=== PATIENT | female | born 1980 | race Two or more races ===

== ENCOUNTER 2018-04-04 05:14 | Day surgery (SDC) | payer OTHER ==
[2018-04-03 11:33] VITALS: BMI 28.3
[2018-04-04] MEDS ORDERED: PHENAZOPYRIDINE HCL 100 MG TABLET (FP) PO ONE (06:15)
[2018-04-04] MEDS ORDERED: PHENAZOPYRIDINE HCL 100 MG TABLET (FP) ONE (06:30)
[2018-04-04 07:11] LABS: ANION GAP 4 MMOL/L (8-16); BLOOD UREA NITROGEN 10 mg/dL (7-18); CALCIUM 8.8 mg/dL (8.5-10.1); CHLORIDE 110 mmol/L (98-107); CO2 26 mmol/L (21-32); CREATININE 0.7 mg/dL (0.55-1.3); GLUCOSE,RANDOM 78 mg/dL (74-106); POTASSIUM 4.2 mmol/L (3.5-5.1); SODIUM 139 mmol/L (136-145)
[2018-04-04] MEDS ORDERED: ceFAZolin SODIUM 1 GM VIAL ONE (07:21)
[2018-04-04] MEDS ORDERED: fentaNYL CITRATE 250 MCG/5 ML VIAL ONE ×2 (08:40→11:01)
[2018-04-04] MEDS ORDERED: LIDOCAINE HCL/PF 2% SDV 5ML VIAL ONE (08:40)
[2018-04-04] MEDS ORDERED: ROCURONIUM BROMIDE 50 MG/5 ML VIAL ONE ×2 (08:41→11:06)
[2018-04-04] MEDS ORDERED: MIDAZOLAM HCL 2 MG/2 ML SINGLE DOSE VIAL ONE (08:41)
[2018-04-04] MEDS ORDERED: PROPOFOL 20 ML ONE ×2 (08:41)
--- NOTE | 2018-04-04 09:17 | HP ---
History & Physical Update - History History: No Change - Physical Physical: No Change - Assessment Assessment: No Change - Plan Plan: No Change (Full H&P in paper chart)
[2018-04-04] MEDS ORDERED: BUPIVACAINE HCL/PF 0.5% (5MG/ML) 10 ML VIAL ONE (10:03)
[2018-04-04] MEDS ORDERED: ceFAZolin SODIUM 1 GM VIAL IVPB ONE (10:30)
[2018-04-04] MEDS ORDERED: DEXAMETHASONE SOD PHOSPHATE 4 MG/1 ML VIAL ONE (10:38)
[2018-04-04] MEDS ORDERED: ePHEDrine SULFATE 50 MG/1 ML AMPULE ONE (10:51)
[2018-04-04] MEDS ORDERED: DESFLURANE GAS 240 ML BOTTLE IH ONE (10:57)
[2018-04-04] MEDS ORDERED: GLYCOPYRROLATE 0.2 MG/1 ML VIAL ONE ×3 (12:46)
[2018-04-04] MEDS ORDERED: NEOSTIGMINE METHYLSULFATE 0.5 MG/ML - 10 ML MDV ONE (12:46)
--- NOTE | 2018-04-04 13:07 | OP ---
Operative Note - Note: Operative Date: 04/04/18 Pre-Operative Diagnosis: Leiomyomatous uterus. bilateral salpingectomy Operation: Robotic Total Laparoscopic Hysterectomy. Bilateral salpingectomy Findings: uterus 10 cm normal tubes and ovaries Post-Operative Diagnosis: Same as Pre-op Surgeon: Claudine Lobo Adult Services Librarian: Delano Bazan Anesthesia: General Estimated Blood Loss (mls): 300 Operative Report Dictated: Yes
[2018-04-04] MEDS ORDERED: CEFAZOLIN 2 GM in DEXTROSE 5%-WATER - 100 ML IVPB ONE (13:37)
--- NOTE | 2018-04-04 13:39 | SURG ---
Surgery Quality Assurance Specialist Note Quality Assurance Specialist: Delano Bazan PA-C Date of Service: 04/04/18 Diagnosis: Fibroid uterus Procedure: Robotic Total Hysterectomy. Bilateral salpingectomy I was present for the entirety of the operative procedure. For further detail, please refer to operative report.
[2018-04-04] MEDS ORDERED: ONDANSETRON 4 MG/2 ML VIAL IVPUSH PRN (13:41)
[2018-04-04] MEDS ORDERED: HYDROmorphone *PCA* 10MG/50ML DISP.SYRIN PCA SCH ×2 (13:45→14:14)
[2018-04-04] MEDS ORDERED: LACTATED RINGERS SOLUTION 1,000 ML/1,000 ML INFUS.BAG IV SCH (13:45)
[2018-04-04] MEDS ORDERED: ONDANSETRON 4 MG/2 ML VIAL ONE (14:21)
--- NOTE | 2018-04-04 14:56 | OP ---
DATE OF OPERATION: 04/04/2018 PREOPERATIVE DIAGNOSIS: Leiomyomas of uterus, pelvic pain. OPERATION: Robotic laparoscopic total hysterectomy and bilateral salpingectomy. POSTOPERATIVE DIAGNOSIS: Leiomyomas of uterus, pelvic pain. SURGEON: Claudine Lobo MD CHISEL GRINDER: Delano Bazan PA-C ANESTHESIA: General. ESTIMATED BLOOD LOSS: 300 mL. PROCEDURE: Patient was taken to the operating room, placed in dorsal lithotomy position, prepped and draped in the usual sterile fashion. A timeout was performed in accordance with hospital regulation. Speculum was placed in the vagina. Anterior cervix was grasped with a single-toothed tenaculum. Cervix was then dilated to accommodate the uterine manipulator. Dai catheter was inserted into the bladder. Uterine manipulator was placed around the patient's cervix. Attention was then drawn to the umbilicus where an 8-mm umbilical incision was made. Veress needle was inserted into the cavity. Approximately 3-4 L of CO2 was insufflated into the cavity. Veress needle was then removed, and an 8-mm trocar was then inserted. Laparoscope and camera were attached. Visualization revealed a leiomyomas of uterus and adenomyosis, normal tubes and ovaries. Patient had had a bilateral tubal ligation in the past. Two trocars were placed on the left side, 1 parallel to the umbilical and 1 in the upper abdomen on the left. An 8-mm incision and a 5-mm incision were then done. The laparoscopy was then visualized as the trocars entered the abdomen. AirSeal cannula was then attached. Two trocars were also placed on the right side 8-mm in diameter and 10 cm from each other. Da Jarrod Robot was then side docked to the patient's arm. Trocars were then inserted onto the robot. A tenaculum was placed on arm 4, Endoshears were placed in arm 3, and vessel sealer was placed on arm 1. All instruments were followed to the site of operation. Patient had been placed in steep Trendelenburg prior to Da Jarrod Robot attachment. Attention was then drawn to the console where control of the console was then performed. Tenaculum was then used to elevate the uterus, and uterine ovarian ligaments were identified and clipped and cut. Tubes and ovaries were noted to be normal on the left side. Ovarian ligament was identified and clamped and cut. Vesicouterine reflection was then entered, and bladder was bluntly dissected out of the line operator field. Cardinal ligament was then identified and clamped and cut down to the level of the cervix. The same procedure was repeated on the other side down to the level of the cervix. The Endoshears were then used to cut the vagina circumferentially, and cervix and uterus were then removed vaginally after Endoshears had removed all of the cervix away from the vagina. Tubes were bilaterally grasped, and LigaSure was then used to cut and clamp the tubes. Tubes were then removed. A V-Loc suture was then passed into the abdomen, and V-Loc suture was then used to close the vagina in continuous fashion. Hemostasis was achieved. Irrigation was done. Ureters were identified throughout the whole case and found to be peristalsis. No orange urine was seen in the abdomen. Bladder was noted to be intact. The needle was then removed. CO2 was removed from the abdomen. Incisions were then closed using 3-0 Vicryl suture in subcuticular fashion. Wound was washed and dressed. Patient tolerated the procedure well. ESTIMATED BLOOD LOSS: 300 mL. Tommy [id number]
[2018-04-04] MEDS ORDERED: CEFAZOLIN 2 GM in DEXTROSE 5%-WATER 100 ML IVPB SCH (18:00)
[2018-04-04] MEDS ORDERED: CEFAZOLIN 2 GM/D5W 2 GM/50 ML ML IVPB SCH (18:26)
[2018-04-04 19:10] LABS: BASO % 0.1 % (0-2.0); HEMATOCRIT 32.2 % (32.4-45.2); HEMOGLOBIN 10.1 GM/dL (10.7-15.3); LYMPH % 4.8 % (8-40); MCHC 31.4 g/dl (32.0-36.0); MEAN PLT VOLUME 9.2 fl (7.5-11.1); NEUT % 92.1 % (42.8-82.8); PLATELET COUNT 211 K/MM3 (134-434); RBC 5.12 M/mm3 (3.60-5.2); RDW 16.5 % (11.6-15.6); WHITE BLOOD COUNT 14.3 K/mm3 (4.0-10.0)
[2018-04-04 19:17] LABS: MCH 19.8 pg (25.7-33.7)
[2018-04-04 19:44] LABS: ALBUMIN 3.3 g/dl (3.4-5.0); ALK PHOS 49 U/L (45-117); ANION GAP 7 MMOL/L (8-16); BILIRUBIN,TOTAL 0.5 mg/dL (0.2-1); BLOOD UREA NITROGEN 8 mg/dL (7-18); CALCIUM 8.1 mg/dL (8.5-10.1); CHLORIDE 106 mmol/L (98-107); CO2 24 mmol/L (21-32); CREATININE 0.5 mg/dL (0.55-1.3); GLUCOSE,RANDOM 116 mg/dL (74-106); POTASSIUM 4.1 mmol/L (3.5-5.1); SGOT/AST 16 U/L (15-37); SGPT/ALT 17 U/L (13-61); SODIUM 138 mmol/L (136-145); TOT PROT 6.5 g/dl (6.4-8.2)
[2018-04-04 20:28] LABS: ANISOCYTOSIS 1+; MACROCYTOSIS 1+; PLATELET ESTIMATE ADEQUATE
[2018-04-05 07:52] LABS: HEMATOCRIT 30.6 % (32.4-45.2); HEMOGLOBIN 9.6 GM/dL (10.7-15.3); MCHC 31.4 g/dl (32.0-36.0); MEAN CELL VOLUME 63.2 fl (80-96); MEAN PLT VOLUME 9.1 fl (7.5-11.1); PLATELET COUNT 182 K/MM3 (134-434); RBC 4.84 M/mm3 (3.60-5.2); RDW 16.7 % (11.6-15.6); WHITE BLOOD COUNT 12.5 K/mm3 (4.0-10.0)
[2018-04-05] MEDS ORDERED: oxyCODONE HCL 5 MG TABLET PO PRN ×2 (07:57)
[2018-04-05 08:05] LABS: MCH 19.8 pg (25.7-33.7)
--- NOTE | 2018-04-05 08:08 | PN ---
Progress Note (short form) - Note Progress Note: 37yo F s/p Robotic hysterectomy POD 1. Pt seen and examined at bedside. Pt states that she is feeling well. Denies n/v, fever, chills. States that her pain is well controlled and has ambulated a little bit. Pt denies any excessive vaginal bleeding. Last Vital Signs Temp Pulse Resp BP Pulse Ox 99.2 F 95 H 20 99/54 L 100 04/05/18 06:00 04/05/18 06:00 04/05/18 06:00 04/05/18 06:00 04/04/18 21:00 PE: Gen: A&O x3 Resp: breathing comfortably Abd: soft, nondistended, mild tenderness, incisions are clean with no erythema or discharge. Ext: no edema Problem List - Problems (1) H/O abdominal hysterectomy Assessment/Plan: Plan -DC coello -advance diet -DC FLIGHT ENGINEER HELICOPTER and convert to PO pain meds -OOB/ambulate -will follow up AM labs -will consider discharge home later today if pt doing well. Code(s): Z90.710 - ACQUIRED ABSENCE OF BOTH CERVIX AND UTERUS
[2018-04-05 09:02] LABS: ANION GAP 8 MMOL/L (8-16); BLOOD UREA NITROGEN 7 mg/dL (7-18); CALCIUM 8.5 mg/dL (8.5-10.1); CHLORIDE 105 mmol/L (98-107); CO2 27 mmol/L (21-32); CREATININE 0.6 mg/dL (0.55-1.3); GLUCOSE,RANDOM 76 mg/dL (74-106); SODIUM 139 mmol/L (136-145)
[2018-04-05] MEDS ORDERED: ENOXAPARIN NA (PORCINE) 30 MG/0.3 ML DISP.SYRIN SQ SCH (10:00)
[2018-04-05] MEDS ORDERED: PCA PUMP KEY 1 EACH EACH ONE ×2 (14:49→15:33)
--- NOTE | 2018-04-05 17:16 | PN ---
Progress Note, Physician History of Present Illness: PT s/p Robotic hysterectomy. Doing well. Tolerating diet, ambulating, voiding , passing flatus, tolerating regular diet. Desires to go home. - Current Medication List Current Medications: Active Medications Diphenhydramine HCl (Benadryl Injection -) 12.5 mg IVPUSH ONCE PRN PRN Reason: FOR ITCHING Enoxaparin Sodium (Lovenox -) 30 mg SQ DAILY DON Last Admin: 04/05/18 10:15 Dose: 30 mg Hydromorphone HCl (Dilaudid Cath Lab Radiology Technician -) 10 mg TRAIN MASTER TRAIN MASTER DON; Protocol Stop: 04/11/18 13:42 Lactated Ringer's (Lactated Ringers Solution) 1,000 ml in 1,000 mls @ 75 mls/ hr IV ASDIR DON Last Admin: 04/04/18 23:46 Dose: 75 mls/hr Ondansetron HCl (Zofran Injection) 4 mg IVPUSH Q4H PRN PRN Reason: NAUSEA AND/OR VOMITING Last Admin: 04/04/18 19:57 Dose: 4 mg Oxycodone HCl (Roxicodone -) 5 mg PO Q4H PRN PRN Reason: PAIN LEVEL 1-5 Last Admin: 04/05/18 09:39 Dose: 5 mg Oxycodone HCl (Roxicodone -) 10 mg PO Q4H PRN PRN Reason: PAIN LEVEL 6-10 - Objective Vital Signs: Vital Signs Temperature 98.7 F 04/05/18 09:00 Pulse Rate 96 H 04/05/18 09:00 Respiratory Rate 20 04/05/18 09:00 Blood Pressure 113/76 04/05/18 09:00 O2 Sat by Pulse Oximetry (%) 100 04/04/18 21:00 Constitutional: Yes: Well Nourished, No Distress, Calm Eyes: Yes: Conjunctiva Clear HENT: Yes: Atraumatic Neck: Yes: WNL Cardiovascular: Yes: Regular Rate and Rhythm Respiratory: Yes: Regular Gastrointestinal: Yes: Normal Bowel Sounds, Soft Wound/Incision: Yes: Clean/Dry, Well Approximated Neurological: Yes: Alert, Oriented Psychiatric: Yes: Alert, Oriented Labs: CBC, BMP 04/05/18 07:00 04/05/18 07:00 Problem List - Problems (1) History of robot-assisted laparoscopic hysterectomy Code(s): Z90.710 - ACQUIRED ABSENCE OF BOTH CERVIX AND UTERUS Assessment/Plan 37 y/o POD#1 s/p robotic hysterectomy doing well pain controlled tolerating diet PO pain meds discharge home
[2018-04-05 17:20] VITALS: BP 118/65; PULSE 91; TEMP 99.1
--- NOTE | 2018-04-08 16:35 | PATH ---
Surgical Pathology Report Patient Name: FLORENCIO VALDEZ [facility]. Rec. #: [id number] /Age/Gender: 1980 (Age: 37) / F Account: [id number] Location: AMBULATORY SURG Taken: 04/04/2018 Received: 04/05/2018 Reported: 04/08/2018 Physicians: Claudine Lobo M.D. Specimen(s) Received A: RIGHT FALLOPIAN TUBE B: LEFT FALLOPIAN TUBE C: UTERUS AND CERVIX Clinical History Leiomyoma of uterus Final Diagnosis A. FALLOPIAN TUBE, RIGHT, SALPINGECTOMY: UNREMARKABLE FALLOPIAN TUBE (INCLUDING FULL LUMINAL PORTION AND FIMBRIATED END). B. FALLOPIAN TUBE, LEFT, SALPINGECTOMY: UNREMARKABLE FALLOPIAN TUBE (INCLUDING FULL LUMINAL PORTION AND FIMBRIATED END). C. UTERUS AND CERVIX, ROBOTIC LAPAROSCOPIC HYSTERECTOMY: PROLIFERATIVE ENDOMETRIUM. CERVIX WITH FOCAL ACUTE AND CHRONIC CERVICITIS. MYOMETRIUM WITH ADENOMYOSIS AND INTRAMURAL LEIOMYOMA(TA). Electronically Signed Zahira Mueller M.D. Gross Description A. Received in formalin labeled "right fallopian tube," is a 0.4 cm in length portion of fallopian tube with attached fimbria. The specimen is entirely submitted in 2 cassettes as follows: 1-fimbria; 2-cross section of fallopian tube. B. Received in formalin labeled "left fallopian tube," is a 2 cm in length fimbriated fallopian tube. The outer surface is thakkar-shore and smooth. Sectioning reveals an unremarkable lumen. Cigarette Making Machine Operator sections are submitted in 2 cassettes as follows: 1-fimbria; 2-cross sections of fallopian tube. C. Received in formalin labeled "uterus and cervix," is a 113 g uterus with an attached cervix and no attached adnexa. The specimen measures 9 cm from superior to inferior, 6 cm from left to right and 5 cm from anterior to posterior. The attached cervix measures 3.5 cm in length and 3.1 cm in diameter. The ectocervix is thakkar, smooth and glistening. The endocervix is unremarkable. The endometrial cavity measures 4.5 cm in length and 2.4 cm from cornu to cornu. The endometrium is red and measures up to 0.3 cm in thickness. The myometrium displays multiple intramural nodules, measuring up to 2.2 cm in greatest dimension. The cut surface of the nodules is thakkar and rubbery with whorled architecture. No areas of hemorrhage or necrosis are identified. The remaining myometrium is thakkar-pink and measures up to 2.4 cm in thickness. Cigarette Making Machine Operator sections are submitted in 8 cassettes as follows: 1-anterior cervix; 2-posterior cervix; 8-8-wgdnkedv endomyometrium; 8-9-zapvhepkw endomyometrium; 1-0-fnqkfvwdrj nodules. 04/05/2018 [facility]04/05/2018
== END 2018-04-05 16:50 | disposition home or self-care (01) ==
LOC: JASUSAT 05:14 → EDSTATUS 08:00 → J3W 16:12 → JASUSAT 04-05 16:50
PROVIDERS: ATTEND Obstetrics & Gynecology
PROC: 8E0W8CZ Robotic Assisted Procedure of Trunk Region, Via Natural or Artificial Opening Endoscopic (ICD-10-PCS; 2018-04-04)
PROC: 0UT9FZZ Resection of Uterus, Via Natural or Artificial Opening With Percutaneous Endoscopic Assistance (ICD-10-PCS; principal; 2018-04-04 08:30)
PROC: 0UT7FZZ Resection of Bilateral Fallopian Tubes, Via Natural or Artificial Opening With Percutaneous Endoscopic Assistance (ICD-10-PCS; 2018-04-04 08:30)
DX: D25.9 Leiomyoma of uterus, unspecified (principal); R10.2 Pelvic and perineal pain
CPT/HCPCS: 58552; S2900; 36415; 80048; 80053; 85025; 85027; 86850; 86900; 86901; 88305-TC; 88307-TC; 94010; 94760

== ENCOUNTER 2018-04-11 14:10 | Emergency (ER) | payer OTHER ==
[2018-04-11 14:18] VITALS: BMI 28.3
--- NOTE | 2018-04-11 14:30 | PDOC ---
History of Present Illness - General Chief Complaint: Shortness of Breath Stated Complaint: SOB (PCP SENT) Time Seen by Provider: 04/11/18 14:29 History Source: Patient Exam Limitations: No Limitations - History of Present Illness Initial Comments: 04/11/18 14:30 CHIEF COMPLAINT: Dyspnea HISTORY OF PRESENT ILLNESS: This is a 37-year-old female with a history of fibroids and endometriosis who underwent laparoscopic hysterectomy and bilateral salpingectomy on 04/04. She presents today with new onset of dyspnea ( even at rest), headache, palpitations, and lightheadedness when standing. She "feels hot" but has not documented any fevers. She reports that prior to this, she had been having some nausea and dry cough throughout the week. She received antibiotics perioperatively. She stopped taking oxycodone for pain several days ago and has been taking ibuprofen since then. The patient denies hemoptysis, calf pain, or any other symptoms. She states that her surgical incision site is healing well. Vital signs on arrival are notable for heart rate of 117 and respiratory rate of 22. OB is Dr. Moses. Patient does not have a PCP. REVIEW OF SYSTEMS: GENERAL/CONSTITUTIONAL: Subjective fever. Malaise. No weight change. HEAD, EYES, EARS, NOSE AND THROAT: No change in vision. No ear pain or discharge. No sore throat. CARDIOVASCULAR: Palpitations. No chest pain. RESPIRATORY: Dyspnea at rest. Dry cough. No wheezing. GASTROINTESTINAL: Nausea. No vomiting, diarrhea or constipation. GENITOURINARY: No dysuria, frequency, or change in urination. MUSCULOSKELETAL: No joint or muscle swelling or pain. No neck or back pain. SKIN: No rash or easy bruising. NEUROLOGIC: Headache. Lightheadedness. No vertigo, loss of consciousness, or loss of sensation. PSYCHIATRIC: No depression or anxiety. ENDOCRINE: No increased thirst. No abnormal weight change. HEMATOLOGIC/LYMPHATIC: Perioperative anemia. Weight Control Lecturer easy bleeding, or history of blood clots. ALLERGIC/IMMUNOLOGIC: No hives or skin allergy. No latex allergy. PHYSICAL EXAM: GENERAL: The patient is awake, alert, and fully oriented, in no acute distress. HEAD: Normal with no signs of trauma. ENT: Pupils equal, round and reactive to light, extraocular movements intact, sclera anicteric, conjunctivae pale. Neck supple. LUNGS: Clear to auscultation bilaterally. Normal excursion. No respiratory distress or use of accessory muscles. No pleuritic pain. CV: RRR, S1/S2, no MRG. Cap refill < 2 sec. ABDOMEN: Soft, non-distended, non-tender. EXTREMITIES: Normal range of motion, no edema. No calf tenderness. NEUROLOGICAL: Normal speech, normal gait. CN II-XII grossly intact. PSYCH: Normal mood, normal affect. SKIN: Warm, dry, normal turgor, no rashes or lesions noted. Past History - Past Medical History Allergies/Adverse Reactions: Allergies Allergy/AdvReac Type Severity Reaction Status Date / Time latex Allergy Intermediate Swelling Verified 04/11/18 14:18 Fish Containing Products Allergy "facial Verified 04/11/18 14:18 swelling" No Known Drug Allergies Allergy Verified 04/11/18 14:18 pineapple Allergy "throat Verified 04/11/18 14:18 itchy" Home Medications: Ambulatory Orders Cetirizine HCl [Zyrtec -] 10 mg PO PRN 04/03/18 Ibuprofen 800 mg PO PRN 04/03/18 Docusate Sodium [Colace] 100 mg PO BID #30 capsule 04/05/18 oxyCODONE HCL [Roxicodone -] 5 mg PO Q4H PRN #20 tablet MDD 6 04/05/18 Doxycycline Hyclate 100 mg PO BID #14 tablet 04/11/18 Metoclopramide HCl [Reglan] 10 mg PO TID PRN #10 tablet 04/11/18 Anemia: No Asthma: No Cancer: No Cardiac Disorders: No CVA: No COPD: No CHF: No Dementia: No Diabetes: No GI Disorders: No Disorders: No HTN: No Hypercholesterolemia: No Liver Disease: No Seizures: No Thyroid Disease: No Other medical history: endometriosis/fibroids - Suicide/Smoking/Psychosocial Hx Smoking History: Never smoked Have you smoked in the past 12 months: No Information on smoking cessation initiated: No Hx Alcohol Use: No Drug/Substance Use Hx: No Substance Use Type: None *Physical Exam - Vital Signs Last Vital Signs Temp Pulse Resp BP Pulse Ox 98.9 F 117 H 22 H 124/76 98 04/11/18 14:14 04/11/18 14:14 04/11/18 14:14 04/11/18 14:14 04/11/18 14:14 Heart Score/ECG Review - ECG Intrepretation Comment:: 04/11/18 15:21 Normal sinus rhythm at 97 bpm with right axis deviation and nonspecific ST/T wave abnormalities ED Treatment Course - LABORATORY CBC & Chemistry Diagram: 04/11/18 14:30 04/11/18 14:30 - RADIOLOGY Radiology Studies Ordered: Category Date Time Status CHEST PA & LAT [RAD] Stat Radiology 04/11/18 14:29 Ordered Medical Decision Making - Medical Decision Making 04/11/18 14:46 A/P: 37-year-old female with post-operative dry cough, palpitations, lightheadedness in post-operative period. Differential includes but is not limited to PE, pneumonia, atelectasis, symptomatic anemia. 1. EKG and manager operating 2. CXR 3. Labs including CBC, CMP, PT/INR, T&S 4. CTA chest r/o PE 5. Re-assess 04/11/18 15:00 WBC 13.7 H/H within normal limits at 11.0/35.1 04/11/18 17:27 CTA reviewed. No evidence of pulmonary embolism. 2 x 2 centimeter focal opacity suggestive of small infiltrate noted within the superior segment of the left lower lobe. Given elevated white blood cell count, cough, dyspnea, will treat. Patient reevaluated. Heart rate is 84. Oxygen saturation is 99%. Patient feels less dyspneic. As she is still complaining of nausea and headache, will treat with Reglan and fluids. Patient feels well enough to go home with oral antibiotics. Dr. Lobo paged to discuss disposition. *DC/Admit/Observation/Transfer Diagnosis at time of Disposition: History of robot-assisted laparoscopic hysterectomy Pneumonia Qualifiers: Pneumonia type: due to unspecified organism Laterality: left Lung location: lower lobe of lung Qualified Code(s): J18.1 - Lobar pneumonia, unspecified organism - Discharge Dispostion Disposition: HOME Condition at time of disposition: Improved Decision to Admit order: No - Prescriptions Prescriptions: Doxycycline Hyclate 100 mg PO BID #14 tablet Metoclopramide HCl [Reglan] 10 mg PO TID PRN #10 tablet PRN Reason: headache or nausea - Referrals Referrals: Claudine Lobo MD [Staff Physician] - 3 days - Patient Instructions Printed Discharge Instructions: DI for Pneumonia -- Adult Additional Instructions: -Rest and stay well-hydrated -Take doxycycline (an antibiotic) as prescribed for the full course for treatment of pneumonia -Take Reglan as prescribed if needed for nausea or headache -Follow up with Dr. Lobo -Return here for worsening shortness of breath or any other concerning symptoms - Post Discharge Activity
[2018-04-11 14:49] LABS: BASO % 1.1 % (0-2.0); EOS % 1.9 % (0-4.5); HEMATOCRIT 35.1 % (32.4-45.2); MCHC 31.2 g/dl (32.0-36.0); MEAN CELL VOLUME 63.4 fl (80-96); MEAN PLT VOLUME 9.3 fl (7.5-11.1); MONO % 8.2 % (3.8-10.2); NEUT % 69.8 % (42.8-82.8); PLATELET COUNT 270 K/MM3 (134-434); RBC 5.54 M/mm3 (3.60-5.2); RDW 16.5 % (11.6-15.6); WHITE BLOOD COUNT 13.7 K/mm3 (4.0-10.0)
[2018-04-11 14:52] LABS: MCH 19.8 pg (25.7-33.7)
[2018-04-11 15:04] LABS: INR 1.13 (0.83-1.09); PROTHROMBIN TIME (PATIENT) 13.4 SEC (9.7-13.0)
[2018-04-11 15:25] LABS: ALBUMIN 3.7 g/dl (3.4-5.0); ALK PHOS 58 U/L (45-117); ANION GAP 9 MMOL/L (8-16); BILIRUBIN,TOTAL 0.4 mg/dL (0.2-1); BLOOD UREA NITROGEN 13 mg/dL (7-18); CHLORIDE 103 mmol/L (98-107); CO2 27 mmol/L (21-32); CREATININE 0.7 mg/dL (0.55-1.3); GLUCOSE,RANDOM 87 mg/dL (74-106); POTASSIUM 4.4 mmol/L (3.5-5.1); SGOT/AST 19 U/L (15-37); SGPT/ALT 22 U/L (13-61); SODIUM 139 mmol/L (136-145); TOT PROT 7.6 g/dl (6.4-8.2)
[2018-04-11 15:32] LABS: ACANTHOCYTES 1+; ANISOCYTOSIS 2+; MACROCYTOSIS 0; OVALOCYTE 1+; PLATELET ESTIMATE NORMAL
[2018-04-11] MEDS ORDERED: DOXYCYCLINE HYCLATE 100 MG CAPSULE PO ONE ×2 (17:25→17:34)
[2018-04-11] MEDS ORDERED: METOCLOPRAMIDE HCL INJECTION 10 MG/2 ML VIAL IVPB ONE (17:25)
[2018-04-11] MEDS ORDERED: SODIUM CHLORIDE 1,000 ML IV STA (17:27)
[2018-04-11 17:30] VITALS: BP 108/70; PULSE 85; TEMP 98.1
[2018-04-11] MEDS ORDERED: METOCLOPRAMIDE HCL INJECTION 10 MG/2 ML VIAL ONE (17:34)
[2018-04-11] MEDS ORDERED: ONDANSETRON 4 MG/2 ML VIAL IVPUSH ONE (18:11)
[2018-04-11] MEDS ORDERED: ONDANSETRON 4 MG/2 ML VIAL ONE (18:13)
--- NOTE | 2018-04-12 09:41 | EKG ---
Test Reason : Blood Pressure : / mmHG Vent. Rate : 097 BPM Atrial Rate : 097 BPM P-R Int : 178 ms QRS Dur : 096 ms QT Int : 370 ms P-R-T Axes : 064 114 054 degrees QTc Int : 469 ms NORMAL SINUS RHYTHM POSSIBLE LEFT ATRIAL ENLARGEMENT RIGHT AXIS DEVIATION NONSPECIFIC ST AND T WAVE ABNORMALITY ABNORMAL ECG NO PREVIOUS ECGS AVAILABLE Confirmed by MARI YEPEZ MD ([id number]) on 04/12/2018 9:40:44 AM Referred By: Confirmed By:MARI YEPEZ MD
== END 2018-04-11 18:39 | disposition home or self-care (01) ==
LOC: JER 14:10
PROC: 3E0337Z Introduction of Electrolytic and Water Balance Substance into Peripheral Vein, Percutaneous Approach (ICD-10-PCS; principal; 2018-04-11)
PROC: 3E033GC Introduction of Other Therapeutic Substance into Peripheral Vein, Percutaneous Approach (ICD-10-PCS; 2018-04-11)
PROC: 3E033GC Introduction of Other Therapeutic Substance into Peripheral Vein, Percutaneous Approach (ICD-10-PCS; 2018-04-11)
DX: J18.1 Lobar pneumonia, unspecified organism (principal); Z90.710 Acquired absence of both cervix and uterus; Z90.79 Acquired absence of other genital organ(s)
CPT/HCPCS: 36415; 71275-TC; 80053; 83880; 84484; 85025; 85610; 86850; 86900; 86901; 93005; 93010; 99284-25; J7030

== ENCOUNTER → 2023-04-18 | Day surgery (SDC) | payer OTHER | END | disposition home or self-care (01) | LOC: JRADUS-SUR 08:32 | PROVIDERS: ATTEND Family Medicine | PROC: 0HBT3ZX Excision of Right Breast, Percutaneous Approach, Diagnostic (ICD-10-PCS; principal; 2023-04-18) | DX: N64.1 Fat necrosis of breast (principal); N63.12 Unspecified lump in the right breast, upper inner quadrant | CPT/HCPCS: 19083; 77065-TC; 87899; A4648 ==